=== PATIENT | male | born 1970 | race Hispanic/Latino ===

== ENCOUNTER 2019-10-09 15:44 | Outpatient (CLI) | payer OTHER ==
--- NOTE | 2019-10-09 16:32 | XRay Report ---
CERVICAL SPINE HISTORY: Neck pain. COMPARISON: None. TECHNIQUE: 3 view(s) of the cervical spine obtained. FINDINGS: Vertebrae: Normal alignment. No fracture or significant abnormality. Disc Spaces:Degenerative disc disease with anterior osteophytes and mild disc space narrowing at C5-6 and C6-7. Facet Joints:Multilevel facet hypertrophy. Prevertebral Soft Tissues:No significant abnormality. Additional findings: None. IMPRESSION: 1. No acute abnormality of the cervical spine. 2. Degenerative disc disease at C5-6 and C6-7. Signer Name: Laureano Martin MD Signed: 10/09/2019 4:28 PM Workstation Name: [id number]
--- NOTE | 2019-10-09 16:34 | XRay Report ---
PELVIS AND BILATERAL HIPS HISTORY: BILATERAL HIP PAIN COMPARISON: None. TECHNIQUE: AP view of the pelvis with AP and lateral view of both hips obtained. FINDINGS: Bones: No fracture or dislocation. Joint spaces: Mild osteoarthritis. Soft Tissues: No significant abnormality. Additional findings: The SI joints are normal. IMPRESSION: 1. No acute abnormality. 2. Mild bilateral hip osteoarthritis. Signer Name: Laureano Martin MD Signed: 10/09/2019 4:30 PM Workstation Name: [id number]
== END 2019-10-09 15:45 | disposition home or self-care (01) ==
LOC: XRAY 15:44
PROVIDERS: ATTEND Internal Medicine
DX: M16.0 Bilateral primary osteoarthritis of hip (principal); M47.812 Spondylosis without myelopathy or radiculopathy, cervical region; M50.30 Other cervical disc degeneration, unspecified cervical region; M48.02 Spinal stenosis, cervical region; M25.78 Osteophyte, vertebrae
CPT/HCPCS: 72040; 73521